=== PATIENT | male | born 1995 | race Caucasian/White ===

== ENCOUNTER → 2023-11-06 | Outpatient (CLI) | payer OTHER ==
--- NOTE | 2023-11-06 23:28 | CT ---
EXAMINATION TYPE: CT chest wo con CT DLP: 211.5 mGycm, Automated exposure control for dose reduction was used. DATE OF EXAM: 11/06/2023 6:20 PM COMPARISON: No prior study or report available. CLINICAL INDICATION:Male, 28 years old with history of R91.1 SOLITARY PULMONARY NODULE; PHH, F/U on p ulmonary nodule TECHNIQUE: Multiple axial images were obtained through the chest. Sagittal and coronal reformats were created for review. Contrast used: mL of (None if empty) Oral contrast used: (None if empty) FINDINGS: Examination limited by lack of IV contrast. LUNGS/ PLEURA: No pulmonary nodules of any significant size are identified. No evidence of mass, cons olidation, pleural effusion, or pneumothorax. AIRWAY: Central airways are patent. LOWER NECK: No significant findings. Visualized thyroid unremarkable. MEDIASTINUM: Small amount of non mass-like soft tissue density in the anterior mediastinum, consisten t with residual thymic tissue. There is no evidence of adenopathy by CT criteria. HEART: Normal heart size. No significant coronary arterial calcification seen. No appreciable pericar dial effusion. VASCULATURE: No appreciable aortic atherosclerotic disease. Bovine arch configuration. Aorta is norm al in course and caliber. Pulmonary trunk measures 2.2 CM. Pulmonary trunk is normal in size. Vessels otherwise not further assessed without contrast. SOFT TISSUES/LYMPH NODES: Unremarkable soft tissues. No axillary adenopathy. UPPER ABDOMEN: No acute finding. Gallbladder appears contracted. Spleen is borderline prominent measu ring just under 13 cm in greatest visible dimension. MUSCULOSKELETAL: No acute osseous abnormalities IMPRESSION: Essentially normal exam. No sizable pulmonary nodule or mass detected.
== END | disposition home or self-care (01) ==
LOC: RADCTMAIN 18:10
PROVIDERS: ATTEND Family Medicine
DX: R91.1 Solitary pulmonary nodule (principal)
CPT/HCPCS: 71250

== ENCOUNTER 2023-12-22 15:35 | Emergency (ER) | payer OTHER ==
--- NOTE | 2023-12-22 16:42 | ED ---
Animal Bite HPI - General Chief Complaint: Animal Bite Stated Complaint: Dog bite right thumb-work comp Time Seen by Provider: 12/22/23 16:19 Source: patient Mode of arrival: ambulatory Limitations: no limitations - History of Present Illness Initial Comments: 28-year-old male presenting to the ED with a chief complaint of dog bite. 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 Reports he is unsure of the dog's vaccination status however he does state that he sees this dog, normal basis and does not act suspicious. Dog bite cause puncture wounds to patient's right thumb. No other injuries at this time. Tetanus status unknown. No other complaints at this time. - Related Data Previous Rx's Medication Instructions Recorded Doxycycline [Vibramycin] 100 mg PO BID 14 Days #28 cap 12/22/23 Allergies Allergy/AdvReac Type Severity Reaction Status Date / Time Penicillins Allergy Swelling Verified 12/22/23 16:15 Review of Systems ROS Statement: Those systems with pertinent positive or pertinent negative responses have been documented in the HPI. ROS Other: All systems not noted in ROS Statement are negative. Past Medical History History of Any Multi-Drug Resistant Organisms: None Reported Past Surgical History: No Surgical Hx Reported Past Psychological History: Anxiety, Depression, PTSD Smoking Status: Former smoker Past Alcohol Use History: Occasional Past Drug Use History: None Reported General Exam Limitations: no limitations General appearance: alert, in no apparent distress Head exam: Present: atraumatic, normocephalic Neck exam: Present: normal inspection Respiratory exam: Present: normal lung sounds bilaterally Cardiovascular Exam: Present: regular rate GI/Abdominal exam: Present: soft Extremities exam: Present: other (Superficial puncture wounds to the dorsum of right thumb. No foreign bodies identified.) Neurological exam: Present: alert, oriented X3 Skin exam: Present: warm, dry Course Vital Signs 12/22/23 12/22/23 16:07 17:35 Temperature 98.0 F 98 F Pulse Rate 84 82 Respiratory 18 18 Rate Blood Pressure 114/73 101/69 O2 Sat by Pulse 88 L 98 Oximetry Medical Decision Making - Medical Decision Making Was pt. sent in by a medical professional or institution (, PA, FREIGHT WEIGHER, urgent care, hospital, or senior living...) When possible be specific @ -No Did you speak to anyone other than the patient for history (EMS, parent, family, police, friend...)? What history was obtained from this source @ -No Did you review nursing and triage notes (agree or disagree)? Why? @ -I reviewed and agree with nursing and triage notes Were old charts reviewed (outside hosp., previous admission, EMS record, old EKG, old radiological studies, urgent care reports/EKG's, senior living records)? Report findings @ -No old charts were reviewed Differential Diagnosis (chest pain, altered mental status, abdominal pain women, abdominal pain men, vaginal bleeding, weakness, fever, dyspnea, syncope, headache, dizziness, GI bleed, back pain, seizure, CVA, palpatations, mental health, musculoskeletal)? @ -Differential Musculoskeletal Muscular strain, contusion, ligament sprain, fracture, arthritis, septic arthritis, bursitis, cellulitis, muscle spasm, nerve compression, DVT, arterial occlusion, herpes zoster, electrolyte abnormality, tumor.... This is not meant to be in all inclusive list EKG interpreted by me (3pts min.). @ -None X-rays interpreted by me (1pt min.). @ -X-ray interpreted me which revealed no evidence of acute finding. CT interpreted by me (1pt min.). @ -None done U/S interpreted by me (1pt. min.). @ -None done What testing was considered but not performed or refused? (CT, X-rays, U/S, labs)? Why? @ -None What meds were considered but not given or refused? Why? @ -None Did you discuss the management of the patient with other professionals (professionals i.e. , PA, FRE[facility] WEIGHER, lab, RT, psych nurse, oncology social worker, valve assembler, teacher, control officer manager, complex case manager)? Give summary @ -No Was smoking cessation discussed for >3mins.? @ -No Was critical care preformed (if so, how long)? @ -No Were there social determinants of health that impacted care today? How? (Homelessness, low income, unemployed, alcoholism, drug addiction, transportation, low edu. Level, literacy, decrease access to med. care, intermediate, rehab)? @ -No Was there de-escalation of care discussed even if they declined (Discuss DNR or withdrawal of care, Hospice)? DNR status @ -No What co-morbidities impacted this encounter? (DM, HTN, Smoking, COPD, CAD, Cancer, CVA, ARF, Chemo, Hep., AIDS, mental health diagnosis, sleep apnea, morbid obesity)? @ -None Was patient admitted / discharged? Hospital course, mention meds given and route, prescriptions, significant lab abnormalities, going to OR and other pertinent info. @ -Discharge 28-year-old male presented to the ED with complaint of dog bite. Was delivering mail when a dog bit the back of his right thumb. On examination superficial puncture wounds on the dorsum of the thumb. Wound was soaked and iodine/saline solution. X-ray performed which revealed no evidence of acute finding. Patient has a known allergy to penicillins. Therefore, provided prescription for doxycycline. Tetanus was updated. Discussed strict return precautions with patient who verbalized agreement. Undiagnosed new problem with uncertain prognosis? @ -No Drug Therapy requiring intensive monitoring for toxicity (Heparin, Nitro, Insulin, Cardizem)? @ -No Were any procedures done? @ -No Diagnosis/symptom? @ -Dog bite, right thumb Acute, or Chronic, or Acute on Chronic? @ -Acute Uncomplicated (without systemic symptoms) or Complicated (systemic symptoms)? @ -Uncomplicated Side effects of treatment? @ -No Exacerbation, Progression, or Severe Exacerbation? @ -No Poses a threat to life or bodily function? How? (Chest pain, [place], [place], pneumonia, PE, COPD, DKA, ARF, appy, cholecystitis, CVA, Diverticulitis, Homicidal, Suicidal, threat to staff... and all critical care pts) @ -No Disposition Clinical Impression: Dog bite Disposition: HOME SELF-CARE Condition: Good Instructions (If sedation given, give patient instructions): Animal Bite (ED) Additional Instructions: Please return to the Emergency Department if symptoms worsen or any other concerns. Take antibiotics as prescribed. Monitor for signs of infection. Follow-up with your primary care provider. Prescriptions: Doxycycline [Vibramycin] 100 mg PO BID 14 Days #28 cap Is patient prescribed a controlled substance at d/c from ED?: No Referrals: Josefina Ram PAC [Primary Care Provider] - 1-2 days Time of Disposition: 18:39
[2023-12-22] MEDS: ACETAMINOPHEN TAB 500 MG TAB PO STA (16:49)
[2023-12-22] MEDS: DIPH,PERTUS(ACELL)TETVAC-LF 0.5 ML VIAL IM ONE (16:50)
[2023-12-22] MEDS: KETOROLAC 15 MG/ML 1 ML VIAL IM STA (16:51)
--- NOTE | 2023-12-22 18:27 | XR ---
EXAMINATION TYPE: XR finger RT DATE OF EXAM: 12/22/2023 4:54 PM CLINICAL INDICATION:Male, 28 years old with history of dog bite r thumb; PHH COMPARISON: None TECHNIQUE: 3 views right thumb FINDINGS: Osseous mineralization appears appropriate. No destructive bony lesion. No acute fracture or dislocat ion. Joint spaces are maintained. Unremarkable soft tissues. No radiopaque foreign body is seen. IMPRESSION: Negative for fracture or foreign body.
[2023-12-22] MEDS: DOXYCYCLINE 100 MG CAP PO STA (18:46)
[2023-12-22 18:55] VITALS: BP 111/79; PULSE 79; RESP 16; TEMP 98.3
== END 2023-12-22 18:50 | disposition home or self-care (01) ==
LOC: EC 15:35
DX: S61.501A Unspecified open wound of right wrist, initial encounter (principal); Z23 Encounter for immunization; Z88.0 Allergy status to penicillin; Z87.891 Personal history of nicotine dependence; W54.0XXA Bitten by dog, initial encounter
CPT/HCPCS: 90471; 90715; 99283

== ENCOUNTER → 2024-07-09 | Outpatient (CLI) | payer OTHER ==
--- NOTE | 2024-07-10 08:36 | MR ---
EXAMINATION TYPE: MR brain wo con DATE OF EXAM: 07/09/2024 2:23 PM COMPARISON: None. CLINICAL INDICATION: Male, 29 years old with history of MIGRAINE WITHOUT AURA G43.009 G25.0 BENIGN TR EMOR, Migraine, benign essential tremor. TECHNIQUE: Multiplanar and multispin-echo imaging of the brain was performed . FINDINGS: The ventricles, basal cisterns and sulci overlying the cerebral convexities are within normal limits. There is no evidence for midline shift or mass effect. Acute intracranial hemorrhage or extra-axial collection is not evident. The brain parenchyma reveals no abnormal increased signal. No acute edema is identified. The paranasal sinuses and mastoid air cells are well-aerated. IMPRESSION: Unremarkable MRI of the brain. [facility], , 07/10/2024 8:33 AM
== END | disposition home or self-care (01) ==
LOC: RADMRIMAIN 13:09
PROVIDERS: ATTEND Psychiatry & Neurology Neurology
DX: G25.0 Essential tremor (principal); G43.009 Migraine without aura, not intractable, without status migrainosus
CPT/HCPCS: 70551

== ENCOUNTER → 2024-12-31 | Outpatient (CLI) | payer OTHER ==
--- NOTE | 2024-12-31 21:24 | MR ---
EXAMINATION TYPE: MR cspine/lspine wo con DATE OF EXAM: 12/31/2024 8:38 PM COMPARISON: None. CLINICAL INDICATION: Male, 29 years old with history of M54.50, M54.2; PHH, Neck pain/stiffness, Head aches, Pain in fingers, Low back pain into both sides, TECHNIQUE: Multi planar, multi sequence imaging was performed utilizing: T1-weighted, T2-weighted, a nd turbo inversion recovery imaging of the cervical and lumbar spine. IV Contrast: mL (None, if empty) FINDINGS: CERVICAL: Alignment: The cervical vertebral bodies have preserved heights. Alignment is within normal limits gi juan manuel patient positioning. Bones: Bone signal is within normal limits. No abnormal bone marrow edema on inversion recovery seque nces. Cord: The spinal cord is unremarkable with regards to their signal intensity and morphology. Discs: Intervertebral disc signal is maintained. C2-C3: No significant disc pathology. The spinal canal is patent. No neural foraminal stenosis. C3-C4: No significant disc pathology. The spinal canal is patent. No neural foraminal stenosis. C4-C5: No significant disc pathology. The spinal canal is patent. No neural foraminal stenosis. C5-C6: No significant disc pathology. The spinal canal is patent. No neural foraminal stenosis. C6-C7: No significant disc pathology. The spinal canal is patent. No neural foraminal stenosis. C7-T1: No significant disc pathology. The spinal canal is patent. No neural foraminal stenosis. Other: None. LUMBAR: Alignment: The lumbar vertebral bodies have preserved heights and alignment. Cord: The conus medullaris and the distal spinal cord appear unremarkable with regards to their signa l intensity and morphology. Bones/Discs: No significant degeneration identified. Intervertebral disc signal is maintained. No abn ormal inversion recovery signal to suggest bony edema. T12-L1: No evidence of significant spinal canal stenosis or neural foraminal stenosis. L1-L2: No evidence of significant spinal canal stenosis or neural foraminal stenosis. L2-L3: No evidence of significant spinal canal stenosis or neural foraminal stenosis. L3-L4: No evidence of significant spinal canal stenosis or neural foraminal stenosis. L4-L5: No evidence of significant spinal canal stenosis or neural foraminal stenosis. L5-S1: The disc has a rounded posterior morphology without significant spinal canal stenosis. Facet j oint arthropathy with mild bilateral neural foraminal stenosis. No significant spinal canal or neural foraminal stenosis in the remainder of the visualized levels. Other findings: None. IMPRESSION: No definitive evidence of disc herniation or significant spinal canal stenosis. [facility], , 12/31/2024 9:21 PM
== END | disposition home or self-care (01) ==
LOC: RADMRIMAIN 19:45
PROVIDERS: ATTEND Family Medicine
DX: M54.50 Low back pain, unspecified (principal); M54.2 Cervicalgia
CPT/HCPCS: 72141; 72148